=== PATIENT | female | born 1995 | race American Indian/Alaskan Native ===

== ENCOUNTER 2021-04-30 13:55 | Emergency (ER) | payer OTHER ==
[2021-04-30 14:58] VITALS: BP 120/80
[2021-04-30 15:42] LABS: Basophils # (Auto) 0.1 K/mm3 (0.0-0.1); Basophils % (Auto) 0.9 % (0.0-1.8); Eosinophils # (Auto) 0.3 K/mm3 (0.0-0.4); Eosinophils % (Auto) 4.5 % (0.0-4.3); Hematocrit 35.3 % (30.3-42.9); Hemoglobin 11.7 gm/dl (10.1-14.3); Lymphocytes # (Auto) 2.1 K/mm3 (1.2-5.4); Lymphocytes % (Auto) 27.7 % (13.4-35.0); Mean Corpuscular HGB Conc 33 % (30-34); Mean Corpuscular Volume 81 fl (79-97); Monocytes # (Auto) 0.7 K/mm3 (0.0-0.8); Monocytes % (Auto) 9.7 % (0.0-7.3); Platelet Count 314 K/mm3 (140-440); Red Blood Count 4.38 M/mm3 (3.65-5.03); Red Cell Distribution Width 14.7 % (13.2-15.2)
[2021-04-30 16:13] LABS: Bacteria,Urine 1+ /HPF (Negative); Bilirubin,Urine NEG (Negative); Blood,Urine LG (Negative); Color,Urine Yellow (Yellow); Mucus,Urine FEW /HPF; Urobilinogen,Urine < 2.0 mg/dL (<2.0)
[2021-04-30 16:26] LABS: RBC,Urine > 182.0 /HPF (0.0-6.0)
--- NOTE | 2021-04-30 17:21 | Emergency Department Report ---
ED Female HPI - General Chief complaint: Vaginal Bleeding Stated complaint: LUMP IN BREAST,BLEEDING 2WKS Time Seen by Provider: 04/30/21 15:48 Source: patient Mode of arrival: Ambulatory Limitations: No Limitations - History of Present Illness Initial comments: 25-year-old female presents to the ER today with complaints of lump to her left breast, and abnormal vaginal bleeding. Patient states that she had a lump develop about a month ago to the left breast. She states it then went away, and he fell about 2 weeks ago. She states that it was worse with significant left breast swelling and pain but it has since decreased in size and the pain also has improved. She denies any redness or bruising. She denies any nipple discharge. She states that she is currently not breast-feeding. She denies any injury or bites to her breasts. Patient also complains that she has been having abnormal vaginal bleeding since the end of March. Her last normal menstrual cycle was April 07. She states that she is not currently on any control. She states that the bleeding was heavy, and she was changing 4 pads per day including wearing tampons. She states that the bleeding has since improved. She reports mild lower abdominal cramp and mild dysuria. She reports no abnormal vaginal discharge. She is not any blood thinners or have any bleeding disorders. She states that she currently does not have an [employer]. MD Complaint: vaginal bleeding, other (left breast lump ) -: Gradual, week(s) (1) - Related Data Previous Rx's Medication Instructions Recorded Last Taken Type Ibuprofen [Motrin 800 MG tab] 800 mg PO Q8HR PRN #20 tablet 04/26/15 Unknown Rx Sulfamethoxazole/Trimethoprim 1 each PO BID #14 tablet 04/30/21 Unknown Rx [Bactrim DS TAB] Allergies Allergy/AdvReac Type Severity Reaction Status Date / Time No Known Allergies Allergy Unverified 04/26/15 10:24 ED Review of Systems ROS: Stated complaint: LUMP IN BREAST,BLEEDING 2WKS Other details as noted in HPI Comment: All other systems reviewed and negative Constitutional: denies: chills, fever Eyes: denies: eye pain, eye discharge, vision change ENT: denies: ear pain, throat pain Respiratory: denies: cough, shortness of breath, SOB with exertion, SOB at rest, wheezing Cardiovascular: denies: chest pain, palpitations, dyspnea on exertion, edema, syncope, paroxysmal nocturnal dyspnea Gastrointestinal: abdominal pain. denies: nausea, vomiting, diarrhea, constipation, hematemesis, melena, hematochezia Genitourinary: abnormal menses. 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 - Social History Smoking Status: Current Every Day Smoker Substance Use Type: None - Medications Home Medications: Home Medications Medication Instructions Recorded Confirmed Last Taken Type Ibuprofen [Motrin 800 MG tab] 800 mg PO Q8HR PRN #20 tablet 04/26/15 Unknown Rx Sulfamethoxazole/Trimethoprim 1 each PO BID #14 tablet 04/30/21 Unknown Rx [Bactrim DS TAB] ED Physical Exam - General Limitations: No Limitations General appearance: alert, in no apparent distress - Head Head exam: Present: atraumatic, normocephalic, normal inspection - Eye Eye exam: Present: normal appearance, PERRL, EOMI Pupils: Present: normal accommodation - Neck Neck exam: Present: normal inspection, full ROM - Respiratory Respiratory exam: Present: normal lung sounds bilaterally, other (Breast exam: Mild dimpling noted to the left nipple; there is a masslike area palpated mainly around the areola. No apparent tenderness or erythema. No significant swelling noted to left breast when compared to the right. No nipple discharge). Absent: respiratory distress, wheezes, rales, rhonchi - Cardiovascular Cardiovascular Exam: Present: regular rate, normal rhythm, normal heart sounds - GI/Abdominal GI/Abdominal exam: Present: soft. Absent: distended, tenderness, guarding, rebound - Neurological Exam Neurological exam: Present: alert, oriented X3, CN II-XII intact, normal gait - Psychiatric Psychiatric exam: Present: normal affect, normal mood - Skin Skin exam: Present: intact ED Course Vital Signs 04/30/21 14:51 Pulse Rate 80 Respiratory 20 Rate Blood Pressure 120/80 O2 Sat by Pulse 99 Oximetry ED Medical Decision Making - Lab Data Result diagrams: 04/30/21 15:09 - Medical Decision Making Labs reviewed -- CBC show unremarkable including stable H/H, hcg negative and UA concerning for UTI. Pt is well-appearing, nontoxic and not in any significant distress. She is neurologically intact with a normal gait. She has a soft nontender abdomen. Breast exam shows that she has a masslike structure around her areola, with some mild nipple dimpling, but no apparent signs of abscess or cellulitis or nipple discharge. Vital signs are stable Discussed lab results with patient. Informed patient that she will need to follow-up with [facility] to get an mammogram, and to also further evaluate her abnormal bleeding. She will be discharged home with antibiotics for UTI. At this time there is no indication for any additional testing, imaging, or specialist consult at this time. Patient expressed understanding of all instruc tions and agree with plan. Patient stable at time of discharge. Critical care attestation.: If time is entered above; I have spent that time in minutes in the direct care o f this critically ill patient, excluding procedure time. ED Disposition Clinical Impression: Abnormal vaginal bleeding, Breast lump, UTI (urinary tract infection) Disposition: TO HOME OR SELFCARE Is pt being admited?: No Does the pt Need Aspirin: No Condition: Stable Instructions: Abnormal Uterine Bleeding, Breast Tenderness, Urinary Tract Infection, Adult, [id number], Breast Self-Awareness Additional Instructions: Take the ibuprofen as needed for pain. Take the antibiotic as prescribed. It is important that you follow-up with your [employer] for an outpatient mammogram and further evaluation of your abnormal bleeding. Return to the ER if your symptoms changes or worsens in any way. Prescriptions: Sulfamethoxazole/Trimethoprim [Bactrim DS TAB] 1 each PO BID #14 tablet Referrals: [facility] [Provider Group] - 3-5 Days [facility] [Provider Group] - 3-5 Days Forms: Work/School Release Form(ED) Time of Disposition: 17:23
== END 2021-04-30 18:00 | disposition home or self-care (01) ==
LOC: ED 13:55
DX: N93.9 Abnormal uterine and vaginal bleeding, unspecified (principal); N63.20 Unspecified lump in the left breast, unspecified quadrant; N39.0 Urinary tract infection, site not specified; F17.200 Nicotine dependence, unspecified, uncomplicated; Z79.899 Other long term (current) drug therapy
CPT/HCPCS: 36415; 81001; 84702; 84703; 85025; 87086; 99283

== ENCOUNTER 2022-05-02 23:34 | Emergency (ER) | payer SELFPAY ==
[2022-05-03 00:05] VITALS: BP 132/76
== END 2022-05-03 14:01 | disposition left against medical advice (07) ==
LOC: ED 23:34
DX: R10.9 Unspecified abdominal pain (principal); Z53.21 Procedure and treatment not carried out due to patient leaving prior to being seen by health care provider